=== PATIENT | female | born 1965 | race Caucasian/White ===

== ENCOUNTER 2020-08-31 11:14 | Observation (INO) ==
[2020-08-31] MEDS ORDERED: DILTIAZEM 25 MG/5 ML VIAL IV ONE (11:38)
[2020-08-31] MEDS ORDERED: DILTIAZEM 50 MG/10 ML VIAL IV STA (11:38)
[2020-08-31] MEDS ORDERED: DILTIAZEM INJ 100 MG in SODIUM CHLORIDE 0.9% 100 ML IV SCH (12:00)
[2020-08-31 12:16] LABS: Basophils % 0.7 % (0.0-0.8); Eosinophils # 0.1 10*3/uL (0.0-0.87); Eosinophils % 2.4 % (0.00-10.9); Hematocrit 33.8 VOL% (35.7-47.0); Hemoglobin 10.6 GM/DL (12.0-16.0); Immature Granulocytes % 0.5 %; Immature Granulocytes Absolute 0.03 #; Lymphocytes # 1.2 10*3/uL (1.4-4.0); Lymphocytes % 19.7 % (21.3-54.2); Mean Corpuscular HGB Conc 31.4 GM/DL (32-36); Mean Corpuscular Volume 92.3 FL (87-102); Mean Platelet Volume 9.5 FL (9.6-12.0); Monocytes % 9.3 % (1.7-12.7); Neutrophils % 67.4 % (38.7-73.9); Platelet Count 292 T/CUMM (130-400); Red Blood Count 3.66 MC/CUMM (3.8-5.5); White Blood Count 5.9 T/CUMM (4-12)
[2020-08-31] MEDS ORDERED: MAGNESIUM SULF RIDER 4 GM in PREMIX 1 EACH IV PRN (12:23)
[2020-08-31] MEDS ORDERED: ZALEPLON 5 MG CAPSULE PO PRN (12:23)
[2020-08-31] MEDS ORDERED: PROMETHAZINE 25 MG TABLET PO PRN (12:23)
[2020-08-31] MEDS ORDERED: DOCUSATE SODIUM 100 MG CAPSULE PO PRN (12:23)
[2020-08-31] MEDS ORDERED: POTASSIUM CHLORIDE 20 MEQ TABLET PO PRN (12:23)
[2020-08-31] MEDS ORDERED: ONDANSETRON 4 MG/2 ML VIAL IV PRN (12:23)
[2020-08-31] MEDS ORDERED: MAGNESIUM SULF RIDER 2 GM in PREMIX 1 EACH IV PRN (12:23)
[2020-08-31] MEDS ORDERED: guaiFENesin/DM ER 600-30 MG TABLET PO PRN (12:23)
[2020-08-31] MEDS ORDERED: diphenhydrAMINE CAP 25 MG CAPSULE PO PRN (12:23)
[2020-08-31] MEDS ORDERED: ALUMINUM/MAGNES/SIMETH MAX STR 30 ML UDCUP PO PRN (12:23)
[2020-08-31] MEDS ORDERED: ACETAMINOPHEN 325 MG TABLET PO PRN (12:23)
[2020-08-31 12:26] LABS: PT Patient Result 10.5 SECS (9.8-11.9); Partial Thromboplastin Time 30.2 SECS (23.9-33.8)
[2020-08-31] MEDS ORDERED: AMIODARONE INJ 150 MG in DEXTROSE 5% 100 ML IV ONE (13:08)
[2020-08-31 13:10] LABS: Barbiturates Screen,Urine Negative (Negative); Benzodiazepines Screen,Urine Negative (Negative); Cannabinoid Screen,Urine Negative (Negative); Opiate Screen,Urine Negative (Negative); Phencyclidine Screen,Urine Negative (Negative)
[2020-08-31 13:21] LABS: Alanine Aminotransferase 15 U/L (13-56); Albumin 3.3 G/DL (3.4-5.0); Alkaline Phosphatase 103 U/L (45-117); Aspartate Amino Transferase 12 U/L (0-37); Bilirubin,Total < 0.39 MG/DL (0.2-1.0); Blood Urea Nitrogen 16 MG/DL (7-18); Calcium 9.4 MG/DL (8.5-10.1); Carbon Dioxide 22 MMOL/L (21-32); Estimated Glom Filtration Rate 105 ML/MIN; Glucose 99 MG/DL (74-106); Osmolality,Calculated 281.3 MOS/KG (273-304); Potassium 3.7 MMOL/L (3.5-5.1); Sodium 141 MMOL/L (136-145); Total Protein 7.4 G/DL (6.4-8.3)
[2020-08-31] MEDS ORDERED: AMIODARONE INJ 450 MG in DEXTROSE 5% 241 ML IV SCH ×2 (13:30→19:30)
[2020-09-01 05:48] LABS: Basophils % 0.7 % (0.0-0.8); Eosinophils # 0.3 10*3/uL (0.0-0.87); Eosinophils % 7.7 % (0.00-10.9); Hemoglobin 10.1 GM/DL (12.0-16.0); Immature Granulocytes % 0.2 %; Immature Granulocytes Absolute 0.01 #; Lymphocytes # 1.1 10*3/uL (1.4-4.0); Mean Corpuscular HGB Conc 31.6 GM/DL (32-36); Mean Platelet Volume 10.9 FL (9.6-12.0); Monocytes % 11.8 % (1.7-12.7); Neutrophils % 53.6 % (38.7-73.9); Platelet Count 204 T/CUMM (130-400); Red Blood Count 3.44 MC/CUMM (3.8-5.5); Red Cell Distribution Width 15.3 % (9.3-17.3); White Blood Count 4.2 T/CUMM (4-12)
[2020-09-01 06:06] LABS: Osmolality,Calculated 278.5 MOS/KG (273-304); Potassium 4.1 MMOL/L (3.5-5.1)
[2020-09-01] MEDS ORDERED: LEVOTHYROXINE 50 MCG TABLET PO SCH (07:00)
[2020-09-01 07:52] LABS: Hypochromasia 2+; Platelet Estimate Normal; Stomatocytes Slight; Tear Drop Cells Few
[2020-09-01] MEDS ORDERED: ASPIRIN EC 81 MG TABLET PO SCH (09:00)
[2020-09-01] MEDS ORDERED: SERTRALINE 25 MG TABLET PO SCH (09:00)
[2020-09-01] MEDS ORDERED: PANTOPRAZOLE 40 MG TABLET PO SCH (09:00)
[2020-09-01] MEDS ORDERED: AMIODARONE 200 MG TABLET PO SCH (09:30)
[2020-09-01 12:34] VITALS: BP 167/77
== END 2020-09-01 13:30 | disposition home or self-care (01) ==
LOC: N.ED 11:14 → N.EDINP 11:14 → N.TELEN 17:18
PROVIDERS: ADMIT Internal Medicine Cardiovascular Disease; ATTEND Internal Medicine Cardiovascular Disease

== ENCOUNTER 2021-08-17 11:02 | Observation (INO) ==
[2021-08-17 12:06] LABS: Basophils % 0.6 % (0.0-0.8); Eosinophils # 0.1 10*3/uL (0.0-0.87); Hematocrit 43.4 VOL% (35.7-47.0); Hemoglobin 14.5 GM/DL (12.0-16.0); Immature Granulocytes % 1.1 %; Immature Granulocytes Absolute 0.08 #; Lymphocytes # 1.1 10*3/uL (1.4-4.0); Lymphocytes % 16.1 % (21.3-54.2); Mean Corpuscular HGB Conc 33.4 GM/DL (32-36); Mean Corpuscular Volume 85.6 FL (87-102); Mean Platelet Volume 9.7 FL (9.6-12.0); Monocytes % 7.8 % (1.7-12.7); Neutrophils % 73.4 % (38.7-73.9); Platelet Count 274 T/CUMM (130-400); Red Blood Count 5.07 MC/CUMM (3.8-5.5); Red Cell Distribution Width 13.7 % (9.3-17.3)
[2021-08-17 12:31] LABS: Albumin 3.6 G/DL (3.4-5.0); Bilirubin,Total 0.5 MG/DL (0.20-1.00); Calcium 9.6 MG/DL (8.5-10.1); Osmolality,Calculated 280.4 MOS/KG (273-304); Total Protein 7.8 G/DL (6.4-8.2)
[2021-08-17] MEDS ORDERED: KETOROLAC 30 MG/1 ML VIAL IV STA (14:03)
[2021-08-17] MEDS ORDERED: GLUCAGON 1 MG VIAL IM PRN (14:36)
[2021-08-17] MEDS ORDERED: ONDANSETRON 4 MG/2 ML VIAL IV PRN (14:36)
[2021-08-17] MEDS ORDERED: DEXTROSE 10% 250 ML BAG IV PRN (14:36)
[2021-08-17] MEDS ORDERED: hydrALAZINE 25 MG TABLET PO PRN (14:39)
[2021-08-17] MEDS: hydrALAZINE 25 MG TABLET PO SCH ×2 (16:25→22:50)
[2021-08-17] MEDS: amLODIPine 2.5 MG TABLET PO SCH (16:58)
[2021-08-17] MEDS: ENOXAPARIN 40 MG/0.4 ML SYRINGE SUBCUT SCH (16:58)
[2021-08-17] MEDS: ACETAMINOPHEN 325 MG TABLET PO PRN (22:57)
[2021-08-18 05:33] LABS: Basophils % 0.7 % (0.0-0.8); Eosinophils # 0.1 10*3/uL (0.0-0.87); Eosinophils % 1.8 % (0.00-10.9); Hemoglobin 14.6 GM/DL (12.0-16.0); Immature Granulocytes % 1.3 %; Immature Granulocytes Absolute 0.08 #; Lymphocytes # 1.3 10*3/uL (1.4-4.0); Lymphocytes % 21.9 % (21.3-54.2); Mean Corpuscular HGB Conc 32.4 GM/DL (32-36); Mean Corpuscular Volume 87.2 FL (87-102); Mean Platelet Volume 9.6 FL (9.6-12.0); Monocytes % 13.1 % (1.7-12.7); Neutrophils % 61.2 % (38.7-73.9); Platelet Count 245 T/CUMM (130-400); Red Blood Count 5.16 MC/CUMM (3.8-5.5); Red Cell Distribution Width 13.8 % (9.3-17.3)
[2021-08-18 06:02] LABS: Albumin 3.4 G/DL (3.4-5.0); Bilirubin,Total 0.7 MG/DL (0.20-1.00); Calcium 9.9 MG/DL (8.5-10.1); Osmolality,Calculated 277.7 MOS/KG (273-304); Potassium 3.7 MMOL/L (3.5-5.1); Risk Ratio 4.94; Total Protein 7.6 G/DL (6.4-8.2); VLDL Cholesterol 53.2 MG/DL
[2021-08-18] MEDS: amLODIPine 2.5 MG TABLET PO SCH ×2 (07:46→13:18)
[2021-08-18] MEDS: hydrALAZINE 25 MG TABLET PO SCH ×2 (07:46→13:17)
[2021-08-18] MEDS: ASPIRIN EC 81 MG TABLET PO SCH ×2 (07:47→13:09)
[2021-08-18] MEDS: PANTOPRAZOLE 40 MG TABLET PO SCH ×2 (07:47→13:12)
[2021-08-18] MEDS: LEVOTHYROXINE 50 MCG TABLET PO SCH ×2 (07:47→13:13)
[2021-08-18] MEDS: COENZYME Q10 100 MG CAPSULE PO SCH ×2 (07:47→13:09)
[2021-08-18] MEDS: ACETAMINOPHEN 325 MG TABLET PO PRN (07:48)
[2021-08-18] MEDS ORDERED: AMIODARONE 200 MG TABLET PO SCH (09:00)
[2021-08-18] MEDS: OMEGA 3 ACID ETHYL ESTERS 1 GM CAPSULE PO SCH ×3 (09:18→20:49)
[2021-08-18] MEDS ORDERED: IBUPROFEN 600 MG TABLET PO ONE (11:19)
[2021-08-18] MEDS: ENOXAPARIN 40 MG/0.4 ML SYRINGE SUBCUT SCH (18:03)
[2021-08-19 08:30] VITALS: BP 151/75
[2021-08-19] MEDS ORDERED: AMIODARONE 200 MG TABLET PO SCH (09:00)
[2021-08-19] MEDS ORDERED: amLODIPine 2.5 MG TABLET PO SCH (09:00)
[2021-08-19] MEDS: ASPIRIN EC 81 MG TABLET PO SCH (10:00)
[2021-08-19] MEDS: OMEGA 3 ACID ETHYL ESTERS 1 GM CAPSULE PO SCH (10:01)
[2021-08-19] MEDS: COENZYME Q10 100 MG CAPSULE PO SCH (10:01)
[2021-08-19] MEDS: PANTOPRAZOLE 40 MG TABLET PO SCH (10:01)
[2021-08-19] MEDS: LEVOTHYROXINE 50 MCG TABLET PO SCH (10:01)
== END 2021-08-19 12:53 | disposition home or self-care (01) ==
LOC: EDUNIT# → EDBD → N.ED 11:02 → N.EDINP 11:02 → N.TELES 20:42
PROVIDERS: ADMIT Internal Medicine; ATTEND Internal Medicine

== ENCOUNTER 2022-08-12 10:34 | Inpatient (IN) ==
[2022-08-12] MEDS: LACTATED RINGERS 1,000 ML IV SCH ×2 (11:20→14:34)
[2022-08-12] MEDS ORDERED: LIDOCAINE 2% 5 ML VIAL ONE ×2 (11:35→13:28)
[2022-08-12] MEDS ORDERED: propofoL 200 MG/20 ML VIAL IV ONE ×3 (11:35→13:28)
[2022-08-12] MEDS ORDERED: ONDANSETRON 4 MG/2 ML VIAL ONE ×2 (11:59→13:55)
[2022-08-12] MEDS ORDERED: MAGNESIUM HYDROXIDE SUSP 30 ML UDCUP PO PRN (13:28)
[2022-08-12] MEDS ORDERED: SUCCINYLCHOLINE 200 MG/10 ML VIAL ONE (13:28)
[2022-08-12] MEDS ORDERED: fentaNYL 100 MCG/2 ML VIAL ONE (13:30)
[2022-08-12] MEDS ORDERED: MIDAZOLAM 2 MG/2 ML VIAL ONE (13:37)
[2022-08-12] MEDS ORDERED: SEVOFLURANE 1 UNIT/15 MINUTE INH ONE (13:55)
[2022-08-12] MEDS ORDERED: ROCURONIUM 50 MG/5 ML VIAL IV ONE (13:55)
[2022-08-12] MEDS ORDERED: MEPERIDINE 50 MG/1 ML VIAL IV PRN (14:58)
[2022-08-12] MEDS: ONDANSETRON 4 MG/2 ML VIAL IV PRN ×2 (15:08→20:56)
[2022-08-12] MEDS: MEPERIDINE 25 MG/1 ML VIAL IV PRN ×2 (16:05→19:13)
[2022-08-12] MEDS: metroNIDAZOLE INJ 500 MG/100 ML PREMIX IV SCH ×3 (16:05→20:57)
[2022-08-12 16:17] LABS: Basophils # 0.1 10*3/uL (0.0-0.2); Basophils % 0.4 % (0.0-0.8); Eosinophils # 0.1 10*3/uL (0.0-0.87); Eosinophils % 0.4 % (0.00-10.9); Hemoglobin 13.4 GM/DL (12.0-16.0); Immature Granulocytes % 0.8 %; Immature Granulocytes Absolute 0.11 #; Lymphocytes # 1.1 10*3/uL (1.4-4.0); Lymphocytes % 7.7 % (21.3-54.2); Mean Corpuscular HGB Conc 33.5 GM/DL (32-36); Mean Corpuscular Volume 89.7 FL (87-102); Mean Platelet Volume 9.9 FL (9.6-12.0); Monocytes # 0.8 10*3/uL (0.11-0.8); Monocytes % 5.7 % (1.7-12.7); Platelet Count 210 T/CUMM (130-400); Red Blood Count 4.46 MC/CUMM (3.8-5.5); Red Cell Distribution Width 13.8 % (9.3-17.3); White Blood Count 14.6 T/CUMM (4-12)
[2022-08-12 16:42] LABS: Calcium 9.5 MG/DL (8.5-10.1); Osmolality,Calculated 275.8 MOS/KG (273-304); Potassium 3.6 MMOL/L (3.5-5.1)
[2022-08-12] MEDS: PIPERACILLIN/TAZOBACTAM 3,375 MG in SODIUM CHLORIDE 0.9% 100 ML IV SCH ×2 (17:35→23:09)
[2022-08-12] MEDS: DEXTROSE 5% LACTATED RINGERS 1,000 ML IV SCH (20:59)
[2022-08-12] MEDS ORDERED: PROMETHAZINE INJ 25 MG in SODIUM CHLORIDE 0.9% 50 ML IV PRN (21:28)
[2022-08-12] MEDS: fentaNYL 100 MCG/2 ML VIAL IV PRN (21:48)
[2022-08-13] MEDS ORDERED: fentaNYL 100 MCG/2 ML VIAL IV SCH
[2022-08-13] MEDS: MEPERIDINE 25 MG/1 ML VIAL IV PRN (01:00)
[2022-08-13] MEDS: ONDANSETRON 4 MG/2 ML VIAL IV PRN ×3 (04:10→23:14)
[2022-08-13] MEDS: fentaNYL 100 MCG/2 ML VIAL IV PRN ×6 (04:10→21:41)
[2022-08-13] MEDS: metroNIDAZOLE INJ 500 MG/100 ML PREMIX IV SCH ×4 (04:11→21:37)
[2022-08-13] MEDS: PIPERACILLIN/TAZOBACTAM 3,375 MG in SODIUM CHLORIDE 0.9% 100 ML IV SCH ×3 (05:11→21:36)
[2022-08-13 05:57] LABS: Basophils % 0.2 % (0.0-0.8); Hematocrit 47.5 VOL% (35.7-47.0); Hemoglobin 15.3 GM/DL (12.0-16.0); Immature Granulocytes % 0.7 %; Immature Granulocytes Absolute 0.12 #; Lymphocytes # 0.3 10*3/uL (1.4-4.0); Lymphocytes % 1.7 % (21.3-54.2); Mean Corpuscular HGB Conc 32.2 GM/DL (32-36); Mean Corpuscular Volume 91.2 FL (87-102); Mean Platelet Volume 9.6 FL (9.6-12.0); Monocytes # 1.4 10*3/uL (0.11-0.8); Monocytes % 7.7 % (1.7-12.7); Neutrophils % 89.7 % (38.7-73.9); Platelet Count 273 T/CUMM (130-400); Red Blood Count 5.21 MC/CUMM (3.8-5.5); Red Cell Distribution Width 13.8 % (9.3-17.3)
[2022-08-13 06:13] LABS: Calcium 9.5 MG/DL (8.5-10.1); Osmolality,Calculated 282.5 MOS/KG (273-304); Potassium 3.7 MMOL/L (3.5-5.1)
[2022-08-13 06:17] LABS: Band Neutrophils 6 % (0-10); Lymphocytes 1 % (20-55); Total Cells Counted 100
[2022-08-13 06:18] LABS: Microcytosis Slight
[2022-08-13 06:19] LABS: Hypochromia Slight
[2022-08-13] MEDS ORDERED: fentaNYL 100 MCG/2 ML VIAL IV PRN (07:14)
[2022-08-13] MEDS: PANTOPRAZOLE 40 MG VIAL IV SCH ×2 (08:24→20:00)
[2022-08-13] MEDS: PROMETHAZINE INJ 25 MG in SODIUM CHLORIDE 0.9% 50 ML IV SCH ×5 (08:25→23:19)
[2022-08-13 09:56] LABS: Arterial Base Excess iSTAT -2 MMOL/L (-2.5-2.5); Arterial O2 Saturation iSTAT 92 % (95-100); Arterial PCO2 iSTAT 34 MM HG (35-48); Arterial PO2 iSTAT 62 MM HG (80-95); Arterial Total CO2 iSTAT 23 MMO/L (23-27); Arterial pH iSTAT 7.415 (7.35-7.45)
[2022-08-13] MEDS: DEXTROSE 5% LACTATED RINGERS 1,000 ML IV SCH (10:29)
[2022-08-13] MEDS: LACTATED RINGERS 1,000 ML IV SCH ×2 (11:02→20:32)
[2022-08-14] MEDS: ONDANSETRON 4 MG/2 ML VIAL IV PRN ×2 (01:43→17:58)
[2022-08-14] MEDS: fentaNYL 100 MCG/2 ML VIAL IV PRN ×2 (01:43→07:32)
[2022-08-14] MEDS: metroNIDAZOLE INJ 500 MG/100 ML PREMIX IV SCH ×4 (04:18→21:29)
[2022-08-14] MEDS: PROMETHAZINE INJ 25 MG in SODIUM CHLORIDE 0.9% 50 ML IV SCH (04:18)
[2022-08-14] MEDS: LACTATED RINGERS 1,000 ML IV SCH ×2 (04:22→21:03)
[2022-08-14 04:54] LABS: Basophils % 0.4 % (0.0-0.8); Eosinophils # 0.1 10*3/uL (0.0-0.87); Eosinophils % 0.5 % (0.00-10.9); Hematocrit 44.5 VOL% (35.7-47.0); Hemoglobin 14.7 GM/DL (12.0-16.0); Immature Granulocytes % 0.3 %; Immature Granulocytes Absolute 0.03 #; Lymphocytes # 0.6 10*3/uL (1.4-4.0); Lymphocytes % 6.6 % (21.3-54.2); Mean Corpuscular Volume 89.2 FL (87-102); Mean Platelet Volume 11.4 FL (9.6-12.0); Monocytes # 1.3 10*3/uL (0.11-0.8); Monocytes % 13.6 % (1.7-12.7); Neutrophils % 78.6 % (38.7-73.9); Platelet Count 179 T/CUMM (130-400); Red Blood Count 4.99 MC/CUMM (3.8-5.5); Red Cell Distribution Width 14.6 % (9.3-17.3); White Blood Count 9.5 T/CUMM (4-12)
[2022-08-14 05:15] LABS: Calcium 9.3 MG/DL (8.5-10.1); Potassium 3.7 MMOL/L (3.5-5.1)
[2022-08-14 05:46] LABS: Band Neutrophils 18 % (0-10); Lymphocytes 6 % (20-55); Metamyelocytes 1 %; Total Cells Counted 100
[2022-08-14 05:47] LABS: Hypochromia Slight; Microcytosis Slight
[2022-08-14] MEDS: PIPERACILLIN/TAZOBACTAM 3,375 MG in SODIUM CHLORIDE 0.9% 100 ML IV SCH ×3 (05:55→21:29)
[2022-08-14] MEDS ORDERED: MAGNESIUM SULF RIDER 2 GM/50 ML PREMIX IV PRN (06:54)
[2022-08-14] MEDS ORDERED: POTASSIUM CHLORIDE RIDER 10 MEQ/100 ML PREMIX IV PRN (06:55)
[2022-08-14] MEDS: PANTOPRAZOLE 40 MG VIAL IV SCH ×2 (08:01→20:45)
[2022-08-14] MEDS: METOCLOPRAMIDE 10 MG/2 ML VIAL IV SCH ×2 (12:06→17:53)
[2022-08-14] MEDS: ALBUTEROL/IPRATROPIUM 3 ML NEB RESP TX SCH ×3 (12:54→23:56)
[2022-08-15] MEDS: METOCLOPRAMIDE 10 MG/2 ML VIAL IV SCH ×4 (00:12→18:15)
[2022-08-15] MEDS: ONDANSETRON 4 MG/2 ML VIAL IV PRN ×2 (01:39→23:13)
[2022-08-15] MEDS: metroNIDAZOLE INJ 500 MG/100 ML PREMIX IV SCH ×4 (04:12→21:24)
[2022-08-15 04:42] LABS: Basophils # 0.1 10*3/uL (0.0-0.2); Basophils % 0.5 % (0.0-0.8); Hematocrit 41.1 VOL% (35.7-47.0); Hemoglobin 13.6 GM/DL (12.0-16.0); Immature Granulocytes % 0.4 %; Immature Granulocytes Absolute 0.05 #; Lymphocytes # 0.5 10*3/uL (1.4-4.0); Lymphocytes % 4.1 % (21.3-54.2); Mean Corpuscular HGB Conc 33.1 GM/DL (32-36); Mean Corpuscular Volume 89.3 FL (87-102); Mean Platelet Volume 10.9 FL (9.6-12.0); Monocytes # 1.2 10*3/uL (0.11-0.8); Monocytes % 9.9 % (1.7-12.7); Neutrophils % 85.1 % (38.7-73.9); Platelet Count 188 T/CUMM (130-400); Red Cell Distribution Width 14.6 % (9.3-17.3); White Blood Count 11.9 T/CUMM (4-12)
[2022-08-15 05:03] LABS: Calcium 9.3 MG/DL (8.5-10.1); Osmolality,Calculated 287.5 MOS/KG (273-304); Potassium 3.6 MMOL/L (3.5-5.1)
[2022-08-15] MEDS: PIPERACILLIN/TAZOBACTAM 3,375 MG in SODIUM CHLORIDE 0.9% 100 ML IV SCH ×3 (05:25→21:24)
[2022-08-15 05:30] LABS: Platelet Estimate Adequate
[2022-08-15 05:31] LABS: Band Neutrophils 8 % (0-10); Lymphocytes 3 % (20-55); Total Cells Counted 100
[2022-08-15] MEDS ORDERED: MIDAZOLAM 2 MG/2 ML VIAL IV ONE (07:00)
[2022-08-15] MEDS: ALBUTEROL/IPRATROPIUM 3 ML NEB RESP TX SCH ×3 (07:14→19:27)
[2022-08-15] MEDS: PANTOPRAZOLE 40 MG VIAL IV SCH ×2 (10:23→21:20)
[2022-08-15] MEDS ORDERED: BUPIVACAINE MPF 0.25% 10 ML VIAL ONE (12:08)
[2022-08-15] MEDS ORDERED: LIDOCAINE 1%/EPI INJ 20 ML VIAL ONE (12:08)
[2022-08-15] MEDS ORDERED: MIDAZOLAM 2 MG/2 ML VIAL ONE (12:23)
[2022-08-15] MEDS ORDERED: fentaNYL 100 MCG/2 ML VIAL ONE ×2 (12:23→13:39)
[2022-08-15] MEDS ORDERED: propofoL 200 MG/20 ML VIAL IV ONE (12:23)
[2022-08-15] MEDS ORDERED: LIDOCAINE 2% 5 ML VIAL ONE (12:27)
[2022-08-15] MEDS ORDERED: ONDANSETRON 4 MG/2 ML VIAL ONE (13:38)
[2022-08-15 14:36] VITALS: BP 106/82
[2022-08-15] MEDS: fentaNYL 100 MCG/2 ML VIAL IV PRN ×2 (18:15→21:36)
[2022-08-15] MEDS: LACTATED RINGERS 1,000 ML IV SCH (19:14)
== END 2022-08-15 23:45 | disposition hospice, home (50) | DRG 919 ==
LOC: N.GILAB 10:34 → N.3E 10:34 → N.ICU 08-13 09:43
PROVIDERS: ADMIT Internal Medicine Gastroenterology; ATTEND Internal Medicine Gastroenterology